=== PATIENT | female | born 1985 | race Asian ===

== ENCOUNTER 2024-10-05 08:45 | Inpatient (IN) | payer OTHER ==
[2024-10-05] MEDS: ELECTROLYTE-148 SOLN 500 ML IV ONE (09:00)
[2024-10-05] MEDS ORDERED: DEXAMETHASONE SOD PHOSPHATE 4 MG/1 ML VIAL ONE (10:04)
[2024-10-05] MEDS ORDERED: KETOROLAC TROMETHAMINE 30 MG/1 ML VIAL ONE (10:04)
[2024-10-05] MEDS ORDERED: METOCLOPRAMIDE HCL INJECTION 10 MG/2 ML VIAL ONE (10:04)
[2024-10-05] MEDS ORDERED: ceFAZolin SODIUM 1 GM VIAL ONE (10:04)
[2024-10-05] MEDS ORDERED: OXYTOCIN 10 UNITS/ML VIAL ONE ×2 (10:04→16:10)
[2024-10-05] MEDS ORDERED: PHENYLEPHRINE HCL 10 MG/1 ML SINGLE DOSE VIAL ONE (10:19)
[2024-10-05] MEDS ORDERED: morphine SULFATE/PF 1 MG/2 ML (2cc Syringe - QUVA) ONE (10:53)
[2024-10-05] MEDS ORDERED: FENTANYL CITRATE/PF 50 MCG/ML VIAL ONE (10:53)
[2024-10-05 10:56] VITALS: BMI 25.2
[2024-10-05] MEDS: CITRIC ACID/SODIUM CITRATE 30 ML UNIT-DOSE CUP PO ONE (15:00)
[2024-10-05] MEDS ORDERED: LIGASURE IMPACT TP ONE (15:43)
[2024-10-05] MEDS ORDERED: ONDANSETRON 4 MG/2 ML VIAL IVPB PRN (16:20)
[2024-10-05] MEDS: ACETAMINOPHEN 1000 MG/100 ML BAG IVPB SCH (16:30)
[2024-10-05] MEDS ORDERED: OXYTOCIN 20 UNITS in 0.9% NS 20 UNIT/1,000 ML INFUS.BAG IV ONE (17:35)
[2024-10-05] MEDS: OXYTOCIN 20 UNITS in 0.9% NS 20 UNIT/1,000 ML INFUS.BAG IV SCH (17:38)
[2024-10-05 18:04] LABS: OPIATES, URI NEGATIVE (NEGATIVE); PHENCYCLIDINE,URINE NEGATIVE (NEGATIVE)
[2024-10-05 18:05] LABS: COCAINE, UR NEGATIVE (NEGATIVE); METHADONE, UR NEGATIVE (NEGATIVE); URINE BARBITURATES NEGATIVE (NEGATIVE); URINE BENZODIAZEPINES NEGATIVE (NEGATIVE)
[2024-10-05 18:11] LABS: URINE AMPHETAMINES NEGATIVE (NEGATIVE)
[2024-10-05] MEDS ORDERED: IBUPROFEN 800 MG/8 ML IJ IVPB ONE (18:34)
[2024-10-05] MEDS: IBUPROFEN (CALDOLOR) 800 MG/200 ML PREMIX BAGS IVPB SCH (18:45)
[2024-10-05 21:03] VITALS: RESP 18
[2024-10-05] MEDS: SENNOSIDES/DOCUSATE COMBO (SENNA PLUS) TABLET (UD) PO SCH (22:06)
[2024-10-05] MEDS: SIMETHICONE 80 MG TAB.CHEW (FP) PO PRN (22:07)
[2024-10-06] MEDS: IBUPROFEN (CALDOLOR) 800 MG/200 ML PREMIX BAGS IVPB SCH (02:40)
[2024-10-06 08:33] LABS: BASO % 0.3 % (0-2.0); EOS % 0.9 % (0-4.5); HEMATOCRIT 30.8 % (32.4-45.2); HEMOGLOBIN 10.5 GM/dL (10.7-15.3); LYMPH % 17.1 % (8-40); MCH 29.9 pg (25.7-33.7); MCHC 33.9 g/dl (32.0-36.0); MEAN CELL VOLUME 88.1 fl (80-96); MEAN PLT VOLUME 9.4 fl (7.5-11.1); MONO % 4.4 % (3.8-10.2); NEUT % 77.3 % (42.8-82.8); PLATELET COUNT 149 10^3/uL (134-434); RDW 14.8 % (11.6-15.6); WHITE BLOOD COUNT 11.1 K/mm3 (4.0-10.0)
[2024-10-06] MEDS: IBUPROFEN 600 MG TABLET (FP) PO PRN (08:43)
[2024-10-06] MEDS: ACETAMINOPHEN 500 MG TABLET (FP) PO PRN (13:52)
[2024-10-06] MEDS ORDERED: BISACODYL 10 MG SUPP.RECT RC PRN (16:20)
[2024-10-06] MEDS: oxyCODONE HCL 5 MG TABLET PO PRN (21:39)
[2024-10-07] MEDS: ACETAMINOPHEN 500 MG TABLET (FP) PO SCH (11:41)
[2024-10-07] MEDS: IBUPROFEN 600 MG TABLET (FP) PO SCH (13:21)
[2024-10-07] MEDS: oxyCODONE HCL 5 MG TABLET PO ONE (13:30)
[2024-10-08] MEDS: oxyCODONE HCL 5 MG TABLET PO PRN ×2 (00:59→20:15)
[2024-10-08] MEDS ORDERED: IBUPROFEN 600 MG TABLET (FP) PO PRN (09:27)
[2024-10-08] MEDS ORDERED: ACETAMINOPHEN 500 MG TABLET (FP) PO PRN (09:27)
[2024-10-08] MEDS: ACETAMINOPHEN/CAFFEINE/BUTALBITAL 1 TAB PO PRN (09:34)
[2024-10-08] MEDS ORDERED: CycloBENZAprine HCL 10 MG TABLET (FP) PO ONE (14:38)
[2024-10-08] MEDS: KETOROLAC TROMETHAMINE 30 MG/1 ML VIAL IVPUSH ONE (14:46)
[2024-10-08] MEDS: ACETAMINOPHEN 1000 MG/100 ML BAG IVPB ONE (14:46)
[2024-10-08] MEDS: CycloBENZAprine HCL 5 MG TABLET PO ONE (17:31)
[2024-10-09 08:18] LABS: BASO % 0.3 % (0-2.0); EOS % 2.7 % (0-4.5); HEMATOCRIT 32.6 % (32.4-45.2); HEMOGLOBIN 11.1 GM/dL (10.7-15.3); LYMPH % 17.5 % (8-40); MCH 30.2 pg (25.7-33.7); MCHC 34.2 g/dl (32.0-36.0); MEAN CELL VOLUME 88.3 fl (80-96); MEAN PLT VOLUME 8.6 fl (7.5-11.1); MONO % 4.8 % (3.8-10.2); NEUT % 74.7 % (42.8-82.8); PLATELET COUNT 203 10^3/uL (134-434); RBC 3.69 M/mm3 (3.60-5.2); RDW 15.1 % (11.6-15.6); WHITE BLOOD COUNT 10.8 K/mm3 (4.0-10.0)
[2024-10-09 11:57] VITALS: BP 102/65; PULSE 90; TEMP 98.2
== END 2024-10-09 16:30 | disposition home or self-care (01) | DRG 540 ==
LOC: JLDR 08:45 → J3W 20:02
PROVIDERS: ADMIT Specialist; ATTEND Specialist
PROC: 10D00Z1 Extraction of Products of Conception, Low, Open Approach (ICD-10-PCS; principal; 2024-10-05)
PROC: 0UB70ZZ Excision of Bilateral Fallopian Tubes, Open Approach (ICD-10-PCS; 2024-10-05)
DX: O24.429 Gestational diabetes mellitus in childbirth, unspecified control (principal); O34.219 Maternal care for unspecified type scar from previous cesarean delivery; Z3A.39 39 weeks gestation of pregnancy; Z37.0 Single live birth; Z30.2 Encounter for sterilization
CPT/HCPCS: 36415; 59409; 80307; 82962; 85025; 86850; 86900; 86901; 88305-TC; 88307-TC; 94010; J0131